=== PATIENT | female | born 1970 | race American Indian/Alaskan Native ===

== ENCOUNTER 2016-12-25 07:26 | Emergency (ER) | payer OTHER ==
[2016-12-25 07:36] VITALS: BP 123/88
--- NOTE | 2016-12-25 08:10 | Emergency Department Report ---
- General Chief Complaint: Skin/Abscess/Foreign Body Stated Complaint: HYSTERECTOMY STITCHES BUSTED/LEAKING Time Seen by Provider: 12/25/16 07:44 Source: patient Mode of arrival: Ambulatory Limitations: No Limitations - History of Present Illness Initial Comments: Patient here status post hysterectomy on 12/08 2016. C/O oozing from post op incision that she noticed this morning. She denies fever or chills. Denies pain. She said she placed gauze dressing at the site . She said area was nevaeh prior to this morning. describe drainage as clears pus mixed with blood. Denies odor.patient is diabetic on metformin and said her blood sugar was 150 this morning and did not take her medication as yet. Patient had breakfast this morning. -: This morning Location: abdomen (post op incision) Place: home Patient Tetanus UTD: Yes Context: other (post op incision) Associated Symptoms: none, other (none) Treatments Prior to Arrival: bandage - Related Data Home Medications Medication Instructions Recorded Confirmed Last Taken Lisinopril/Hydrochlorothiazide 1 tab PO DAILY 07/01/13 03/09/15 06/30/13 [Zestoretic 20-12.5 mg] metFORMIN [Glucophage] 500 mg PO BID 07/01/13 03/09/15 07/01/13 Previous Rx's Medication Instructions Recorded Last Taken Type Lisinopril/Hydrochlorothiazide 1 each PO DAILY #7 tablet 03/09/15 Unknown Rx [Zestoretic 20-12.5 mg] Cephalexin [Keflex] 500 mg PO Q8HR #30 cap 12/25/16 Unknown Rx Sulfamethoxazole/Trimethoprim 1 each PO BID #20 tablet 12/25/16 Unknown Rx [Bactrim DS TAB] Allergies Allergy/AdvReac Type Severity Reaction Status Date / Time No Known Allergies Allergy Unverified 12/25/16 07:36 ED Review of Systems ROS: Stated complaint: HYSTERECTOMY STITCHES BUSTED/LEAKING Other details as noted in HPI Comment: All other systems reviewed and negative Constitutional: denies: chills, fever, malaise Respiratory: no symptoms reported Cardiovascular: denies: chest pain, palpitations, edema, syncope Gastrointestinal: denies: abdominal pain, nausea, vomiting Musculoskeletal: denies: back pain, joint swelling, arthralgia Skin: other (Post op wound draining) Neurological: denies: headache, numbness, paresthesias, abnormal gait ED Past Medical Hx - Past Medical History Previous Medical History?: Yes Hx Hypertension: Yes Hx Diabetes: Yes - Surgical History Past Surgical History?: Yes Additional Surgical History: tubal ligation. hysterectomy - Family History Family history: diabetes, hypertension - Social History Smoking Status: Never Smoker Substance Use Type: None - Medications Home Medications: Home Medications Medication Instructions Recorded Confirmed Last Taken Type Lisinopril/Hydrochlorothiazide 1 tab PO DAILY 07/01/13 03/09/15 06/30/13 History [Zestoretic 20-12.5 mg] metFORMIN [Glucophage] 500 mg PO BID 07/01/13 03/09/15 07/01/13 History Lisinopril/Hydrochlorothiazide 1 each PO DAILY #7 tablet 03/09/15 Unknown Rx [Zestoretic 20-12.5 mg] Cephalexin [Keflex] 500 mg PO Q8HR #30 cap 12/25/16 Unknown Rx Sulfamethoxazole/Trimethoprim 1 each PO BID #20 tablet 12/25/16 Unknown Rx [Bactrim DS TAB] ED Physical Exam - General Limitations: No Limitations General appearance: alert, in no apparent distress - Head Head exam: Present: atraumatic, normocephalic, normal inspection - Eye Eye exam: Present: normal appearance, PERRL, EOMI. Absent: periorbital swelling , periorbital tenderness Pupils: Present: normal accommodation - ENT ENT exam: Present: normal exam, normal orophraynx, mucous membranes moist - Neck Neck exam: Present: normal inspection, full ROM. Absent: tenderness, meningismus, lymphadenopathy - Respiratory Respiratory exam: Present: normal lung sounds bilaterally. Absent: respiratory distress, chest wall tenderness - Cardiovascular Cardiovascular Exam: Present: regular rate, normal rhythm, normal heart sounds - GI/Abdominal GI/Abdominal exam: Present: soft, tenderness ( around the incision site), normal bowel sounds. Absent: distended, guarding, rebound, rigid, mass - Extremities Exam Extremities exam: Present: normal inspection, full ROM, normal capillary refill. Absent: tenderness, pedal edema, joint swelling, calf tenderness - Back Exam Back exam: Present: normal inspection, full ROM. Absent: tenderness, CVA tenderness (R), CVA tenderness (L), muscle spasm, paraspinal tenderness, vertebral tenderness, rash noted - Neurological Exam Neurological exam: Present: alert, oriented X3, normal gait, reflexes normal. Absent: motor sensory deficit - Psychiatric Psychiatric exam: Present: normal affect, normal mood - Skin Skin exam: Present: warm, dry, other (Postop incision draining) - Expanded Skin Exam Expanded Type of lesion: Present: other (patient with postop wound pelvic area status post hysterectomy. Small drainage sanguinous at left anterior forearm with small opening. Tenderness to palpate, no induration.) Distribution of rash: abdomen (pelvic postop wound) Description of rash: Present: tenderness, erythematous, discharge. Absent: swelling, crusting, fluctuant, indurated ED Course Vital Signs 12/25/16 07:32 Temperature 98.2 F Pulse Rate 88 Respiratory 16 Rate Blood Pressure 123/88 O2 Sat by Pulse 98 Oximetry Vital Signs 12/25/16 07:32 Temperature 98.2 F Pulse Rate 88 Respiratory 16 Rate Blood Pressure 123/88 O2 Sat by Pulse 98 Oximetry - Reevaluation(s) Reevaluation #1: 12/25/16 10:22 Patient is stable, no distress. In Dr. Brenna Noe from [place] to call back to consult on antibiotic preference for cellulites of postop wound. Reevaluation #2: 12/25/16 11:03 Patient stable no distress and to start on Keflex and Bactrim. ED Medical Decision Making - Lab Data Result diagrams: 12/25/16 08:39 12/25/16 08:39 Lab Results 12/25/16 12/25/16 Range/Units 08:39 08:39 WBC 6.5 (4.5-11.0) K/mm3 RBC 3.98 (3.65-5.03) M/mm3 Hgb 10.9 (10.1-14.3) gm/dl Hct 33.8 (30.3-42.9) % MCV 85 (79-97) fl MCH 28 (28-32) pg MCHC 32 (30-34) % RDW 13.5 (13.2-15.2) % Plt Count 455 H (140-440) K/mm3 Lymph % (Auto) 29.7 (13.4-35.0) % [place] % (Auto) 7.8 H (0.0-7.3) % Eos % (Auto) 1.6 (0.0-4.3) % Baso % (Auto) 0.9 (0.0-1.8) % Lymph # 1.9 (1.2-5.4) K/mm3 [place] # 0.5 (0.0-0.8) K/mm3 Eos # 0.1 (0.0-0.4) K/mm3 Baso # 0.1 (0.0-0.1) K/mm3 Seg Neutrophils % 60.0 (40.0-70.0) % Seg Neutrophils # 3.9 (1.8-7.7) K/mm3 Sodium 137 (137-145) mmol/L Potassium 4.3 (3.6-5.0) mmol/L Chloride 97.3 L (98-107) mmol/L Carbon Dioxide 26 (22-30) mmol/L Anion Gap 18 mmol/L BUN 15 (7-17) mg/dL Creatinine 0.6 L (0.7-1.2) mg/dL Estimated GFR > 60 ml/min BUN/Creatinine Ratio 25.00 % Glucose 254 H (65-100) mg/dL Calcium 9.3 (8.4-10.2) mg/dL Blood cultures are pending. - Radiology Data Radiology results: report reviewed CT scan of the plan and pelvis without contrast revealed nonspecific soft tissue inflammation in the anterior pelvic wall consistent with cellulite. No abscesses visualized. Right nephrolithiasis, nonobstructing. Recent hysterectomy there is no evidence for pelvic fluid collection or abscess. These are present and unremarkable. There are approximately 5 or 6 stones in the right kidney measuring 2 mm. Scarring in the superior pole of the right kidney is also noted to left kidney, renal collecting system and had unremarkable. - Medical Decision Making ED Course: Patient is status post hysterectomy on 12/08/2016 with cellulitis to Postop incision. She is afebrile and her CBC within normal limits, BMP showed a glucose at 254. Patient ate before coming into the emergency room and has not taken her metformin as yet. Incidental findings for right kidney stone without obstruction. I collaborated with Dr. Rodriguez and patient presentation, clinical findings and CT scan and lab results. Patient had no pain in emergency room and remained stable throughout stay. Discussed results of CT scan and lab results with her. She voiced understanding. Dr. Noe called to inform him that patient is in the emergency room for postop wound infection. Discharged home with prescription for Bactrim DS and Keflex and to follow-up in Dr. office as scheduled for next week. Patient had gauze dressing at home and instructed in how to take care of for him. Patient discharged home with family and voiced understanding the discharge instruction. She says she will take her medication for her diabetes when she gets home. I also encouraged her to increase her fluid intake. Wound cleansed with normal saline and sterile dry dressing pesticide. Critical care attestation.: If time is entered above; I have spent that time in minutes in the direct care of this critically ill patient, excluding procedure time. ED Disposition Clinical Impression: Status post hysterectomy Postoperative wound cellulitis Qualifiers: Encounter type: initial encounter Qualified Code(s): T81.4XXA - Infection following a procedure, initial encounter Wound dehiscence, surgical Qualifiers: Encounter type: initial encounter Qualified Code(s): T81.31XA - Disruption of external operation (surgical) wound, not elsewhere classified, initial encounter Disposition: TO HOME OR SELFCARE Is pt being admited?: No Does the pt Need Aspirin: No Condition: Stable Instructions: Cellulitis (ED), Acute Wound Care (ED), Wound Dehiscence (ED) Additional Instructions: Please follow-up with your Surgeon at [facility] as scheduled. Please keep affected area clean and dry Please take antibiotic as prescribed Keep your blood sugar levels within normal limits as stated blood sugar came cause poor wound healing Increase her fluid intake to 2-3 L of water per day She develops redness, increased drainage, pain and fever please call your surgeon and/or return to the emergency room RONNIE Prescriptions: Cephalexin [Keflex] 500 mg PO Q8HR #30 cap Sulfamethoxazole/Trimethoprim [Bactrim DS TAB] 1 each PO BID #20 tablet Referrals: Brenna Dickens [Other] - 12/29/16 (Please keep the appointment with Dr. Brenna Noe for postop evaluation and cellulitis.) Forms: Accompanied Note
--- NOTE | 2016-12-25 08:49 | Cat Scan Report ---
CT OF THE ABDOMEN AND PELVIS WITHOUT CONTRAST HISTORY: Abdominal pain, recent hysterectomy with wound infection. TECHNIQUE: Helical CT without contrast. Sagittal and coronal reformatted images. FINDINGS: No relevant comparison at this facility. History of recent hysterectomy as given. The uterus is absent. The ovaries are present and unremarkable. There is no evidence for pelvic fluid collection or abscess. There is nonspecific soft tissue edema and gas in the anterior subcutaneous tissues consistent with a cellulitis. The liver, biliary system, pancreas, spleen, and adrenal glands are unremarkable. The bowel loops are normal caliber and wall thickness given no oral contrast was administered. Normal appendix. There are approximately 5 or 6 stones in the right kidney measuring 2 mm. Focal cortical scarring in the superior pole of the right kidney is also. The left kidney, renal collecting systems and bladder are unremarkable. The lung bases are clear. Normal heart size. No suspicious bony lesion. IMPRESSION: Nonspecific soft tissue inflammation in the anterior pelvic wall consistent with a cellulitis. No abscess is visualized. Right nephrolithiasis, nonobstructing. Recent hysterectomy.
[2016-12-25 08:53] LABS: Basophils % (Auto) 0.9 % (0.0-1.8); Eosinophils % (Auto) 1.6 % (0.0-4.3); Hematocrit 33.8 % (30.3-42.9); Hemoglobin 10.9 gm/dl (10.1-14.3); Mean Corpuscular HGB Conc 32 % (30-34); Mean Corpuscular Hemoglobin 28 pg (28-32); Mean Corpuscular Volume 85 fl (79-97); Platelet Count 455 K/mm3 (140-440); Red Blood Count 3.98 M/mm3 (3.65-5.03); Red Cell Distribution Width 13.5 % (13.2-15.2); White Blood Count 6.5 K/mm3 (4.5-11.0)
[2016-12-25 09:06] LABS: Anion Gap 18 mmol/L; Blood Urea Nitrogen 15 mg/dL (7-17); Calcium 9.3 mg/dL (8.4-10.2); Carbon Dioxide 26 mmol/L (22-30); Chloride 97.3 mmol/L (98-107); Glucose 254 mg/dL (65-100); Potassium 4.3 mmol/L (3.6-5.0); Sodium 137 mmol/L (137-145)
== END 2016-12-25 11:24 | disposition home or self-care (01) ==
LOC: ED 07:26
DX: T81.4XXA Infection following a procedure, initial encounter (principal); T81.31XA Disruption of external operation (surgical) wound, not elsewhere classified, initial encounter; I10 Essential (primary) hypertension; E11.9 Type 2 diabetes mellitus without complications; Z90.710 Acquired absence of both cervix and uterus; Y83.8 Other surgical procedures as the cause of abnormal reaction of the patient, or of later complication, without mention of misadventure at the time of the procedure
CPT/HCPCS: 36415; 74176; 80048; 85025; 87040; 99284

== ENCOUNTER 2019-01-21 16:21 | Emergency (ER) | payer OTHER ==
--- NOTE | 2019-01-21 17:50 | Emergency Department Report ---
Blank Doc - Documentation Documentation: C/o lower abdominal pain and lower back pain . tsted for UTI last thursday and was negative. no urinary symptoms. No fever or chills . Positive vaginal dischare, Facial pain on both sides Hysterectomy 2017 Dr. Calabrese is PCP Labs,
[2019-01-21 18:40] LABS: Basophils % (Auto) 0.6 % (0.0-1.8); Eosinophils # (Auto) 0.2 K/mm3 (0.0-0.4); Eosinophils % (Auto) 2.2 % (0.0-4.3); Hematocrit 36.7 % (30.3-42.9); Hemoglobin 12.4 gm/dl (10.1-14.3); Lymphocytes # (Auto) 2.9 K/mm3 (1.2-5.4); Lymphocytes % (Auto) 39.5 % (13.4-35.0); Mean Corpuscular HGB Conc 34 % (30-34); Mean Corpuscular Volume 87 fl (79-97); Monocytes # (Auto) 0.4 K/mm3 (0.0-0.8); Monocytes % (Auto) 5.2 % (0.0-7.3); Platelet Count 317 K/mm3 (140-440); Red Blood Count 4.21 M/mm3 (3.65-5.03); Red Cell Distribution Width 13.7 % (13.2-15.2)
[2019-01-21 18:50] LABS: Alanine Aminotransferase 11 units/L (7-56); BUN/Creatinine Ratio 19; Blood Urea Nitrogen 15 mg/dL (7-17); Hemolysis Index 12
[2019-01-21 19:22] LABS: Bilirubin,Urine NEG (Negative); Blood,Urine NEG (Negative); Color,Urine Yellow (Yellow); Mucus,Urine 1+ /HPF; Protein,Urine <15 mg/dL mg/dL (Negative); Urobilinogen,Urine < 2.0 mg/dL (<2.0)
[2019-01-21] MEDS ORDERED: ZOFRAN IV ONE (19:35)
--- NOTE | 2019-01-21 21:15 | Cat Scan Report ---
CT abdomen pelvis w con INDICATION / CLINICAL INFORMATION: Lower abdominal pain with nausea. TECHNIQUE: The patient received 100 cc Omnipaque [address] scans at this location are performed using CT dose reduction for ALARA by means of automated exposure control. COMPARISON: 12/25/2016. FINDINGS: ABDOMEN: The liver, spleen, gallbladder, bile ducts, pancreas, adrenal glands and left kidney are nor mal. There is cortical scarring involving the right kidney, most prominent in the upper pole. There i s a 1 cm angiomyolipoma in the upper pole of the right kidney. I see no evidence of bowel obstruction , wall thickening or free air. The lung bases are clear. PELVIS: The distal ureters and urinary bladder are normal. The uterus is not identified. There is no evidence of adnexal mass or free fluid. A normal appendix is present and there is no evidence of dive rticulitis. I do not identify a hernia. The bones are normal. IMPRESSION: No acute intra-abdominal disease is identified. Signer Name: Robert Gutierrez MD Signed: 01/21/2019 9:11 PM Workstation Name: [id number]
[2019-01-21 21:42] VITALS: BP 118/78
--- NOTE | 2019-01-21 22:04 | Emergency Department Report ---
ED General Adult HPI - General Chief complaint: Abdominal Pain Stated complaint: ABDOMDINAL/LOW BACK PAIN Time Seen by Provider: 01/21/19 17:46 Source: patient Mode of arrival: Ambulatory Limitations: No Limitations - History of Present Illness Initial comments: Patient is a 48-year-old AA female with a history of hypertension and [id number] diabetes who presents to the ED with c/o acute onset persistent diffuse lower abdominal pain that radiates to her lower back for the last 1 week, and which got worse 2 days ago. Patient states that she has been taking ibuprofen for pain which helps her pain but that the pain is persistent as soon as ibuprofen wears off. Patient also states that she's been having constipation problems as well in the last 2 days. Patient however states for the last bowel movement she had was 24 hours ago. Patient also complains of vaginal discharge. No smile. Patient denies fever, chills, nausea, vomiting, dysuria, urinary frequency and urgency, headache, chest pain, shortness of breath, traumatic injury, numbness and tingling of upper and lower extremities bilaterally, urinary or bowel incontinence, saddle paresthesia vaginal bleeding. MD Complaint: Abdominal pain -: Sudden, week(s) (1) Location: abdomen Severity scale (0 -10): 6 (1 mother. No for ibuprofen mildly) Quality: aching, sharp Improves with: none Worsens with: none Associated Symptoms: denies other symptoms ( sick with). denies: confusion, chest pain, cough, headaches, loss of appetite, malaise, nausea/vomiting, rash, shortness of breath Treatments Prior to Arrival: NSAID - Related Data Home Medications Medication Instructions Recorded Confirmed Last Taken Lisinopril/Hydrochlorothiazide 1 tab PO DAILY 07/01/13 03/09/15 06/30/13 [Zestoretic 20-12.5 mg] metFORMIN [Glucophage] 500 mg PO BID 07/01/13 03/09/15 07/01/13 Previous Rx's Medication Instructions Recorded Last Taken Type Lisinopril/Hydrochlorothiazide 1 each PO DAILY #7 tablet 03/09/15 Unknown Rx [Zestoretic 20-12.5 mg] Sulfamethoxazole/Trimethoprim 1 each PO BID #20 tablet 12/25/16 Unknown Rx [Bactrim DS TAB] cephALEXin [Keflex] 500 mg PO Q8HR #30 cap 12/25/16 Unknown Rx Cyclobenzaprine [Flexeril] 10 mg PO TID PRN #21 tablet 01/21/19 Unknown Rx Allergies Allergy/AdvReac Type Severity Reaction Status Date / Time ciprofloxacin [From Cipro] AdvReac Dizziness Verified 01/21/19 16:26 ED Review of Systems ROS: Stated complaint: ABDOMDINAL/LOW BACK PAIN Other details as noted in HPI Constitutional: denies: chills, fever Eyes: denies: eye pain, eye discharge, vision change ENT: denies: ear pain, throat pain Respiratory: denies: cough, shortness of breath, wheezing Cardiovascular: denies: chest pain, palpitations Endocrine: no symptoms reported. denies: increased hunger, increased thirst, unexplained weight gain, unexplained weight loss Gastrointestinal: abdominal pain, constipation. denies: nausea, diarrhea Genitourinary: discharge. denies: urgency, dysuria, frequency, hematuria Musculoskeletal: back pain, arthralgia. denies: joint swelling Skin: denies: rash, lesions Neurological: denies: headache, weakness, paresthesias Psychiatric: denies: anxiety, depression Hematological/Lymphatic: denies: easy bleeding, easy bruising ED Past Medical Hx - Past Medical History Previous Medical History?: Yes Hx Hypertension: Yes Hx Diabetes: Yes - Surgical History Past Surgical History?: Yes Additional Surgical History: tubal ligation. hysterectomy - Social History Smoking Status: Never Smoker - Medications Home Medications: Home Medications Medication Instructions Recorded Confirmed Last Taken Type Lisinopril/Hydrochlorothiazide 1 tab PO DAILY 07/01/13 03/09/15 06/30/13 History [Zestoretic 20-12.5 mg] metFORMIN [Glucophage] 500 mg PO BID 07/01/13 03/09/15 07/01/13 History Lisinopril/Hydrochlorothiazide 1 each PO DAILY #7 tablet 03/09/15 Unknown Rx [Zestoretic 20-12.5 mg] Sulfamethoxazole/Trimethoprim 1 each PO BID #20 tablet 12/25/16 Unknown Rx [Bactrim DS TAB] cephALEXin [Keflex] 500 mg PO Q8HR #30 cap 12/25/16 Unknown Rx Cyclobenzaprine [Flexeril] 10 mg PO TID PRN #21 tablet 01/21/19 Unknown Rx ED Physical Exam - General Limitations: No Limitations General appearance: alert, in no apparent distress - Head Head exam: Present: atraumatic, normocephalic, normal inspection - Eye Eye exam: Present: normal appearance, PERRL, EOMI. Absent: scleral icterus Pupils: Present: normal accommodation - ENT ENT exam: Present: normal exam, normal orophraynx, mucous membranes moist, TM's normal bilaterally, normal external ear exam - Neck Neck exam: Present: normal inspection, full ROM - Respiratory Respiratory exam: Present: normal lung sounds bilaterally. Absent: respiratory distress, wheezes, rales, rhonchi, chest wall tenderness, accessory muscle use - Cardiovascular Cardiovascular Exam: Present: regular rate, normal rhythm, normal heart sounds. Absent: systolic murmur, diastolic murmur, rubs, gallop - GI/Abdominal GI/Abdominal exam: Present: soft, normal bowel sounds - Rectal Rectal exam: Present: deferred - Extremities Exam Extremities exam: Present: normal inspection, full ROM, normal capillary refill - Back Exam Back exam: Present: normal inspection, full ROM. Absent: tenderness, CVA tenderness (L), muscle spasm, paraspinal tenderness, vertebral tenderness - Neurological Exam Neurological exam: Present: alert, oriented X3, CN II-XII intact, normal gait, reflexes normal - Psychiatric Psychiatric exam: Present: normal affect, normal mood - Skin Skin exam: Present: warm, dry, intact, normal color. Absent: rash ED Course Vital Signs 01/21/19 01/21/19 16:34 21:41 Temperature 98 F 98.4 F Pulse Rate 70 66 Respiratory 18 18 Rate Blood Pressure 135/90 Blood Pressure 118/78 [Left] O2 Sat by Pulse 100 99 Oximetry - Reevaluation(s) Reevaluation #1: 01/21/19 22:05 Patient is alert and oriented 3 and is not in distress with normal vital signs. Lab test results were reviewed and are unremarkable including urinalysis. Abdomen pelvis CT scan with contrast shows no acute pathology with normal appendix. On reevaluation, the patient's pain was well controlled as the patient had taken ibuprofen 800 mg prior to arrival in the ED. Patient's symptoms are likely musculoskeletal, and will be discharged home on muscle relaxants and pain medications. Patient was discharged home on pain medications and muscle relaxants and advised to follow-up with primary care physician in 5- 7 days for reevaluation, or return to the ED immediately if symptoms get worse. ED Medical Decision Making - Lab Data Result diagrams: 01/21/19 18:07 01/21/19 18:07 - Radiology Data Radiology results: report reviewed, image reviewed Abdomen-Pelvis CT Scan w/contrast shows no acute pathology in the GI tract and Pelvis region. - Medical Decision Making Patient is alert and oriented 3 and is not in distress with normal vital signs. Lab test results were reviewed and are unremarkable including urinalysis. Abdomen pelvis CT scan with contrast shows no acute pathology with normal appendix. On reevaluation, the patient's pain was well controlled as the patient had taken ibuprofen 800 mg prior to arrival in the ED. Patient's symptoms are likely musculoskeletal, and will be discharged home on muscle relaxants and pain medications. Patient was discharged home on pain medications and muscle relaxants and advised to follow-up with primary care physician in 5- 7 days for reevaluation, or return to the ED immediately if symptoms get worse. - Differential Diagnosis Abdominal pain; acuet colitis, diverticulitis, ovarian cyst, appendicitis Critical care attestation.: If time is entered above; I have spent that time in minutes in the direct care of this critically ill patient, excluding procedure time. ED Disposition Clinical Impression: Spasm of muscle of lower back Abdominal pain Qualifiers: Abdominal location: lower abdomen, unspecified Qualified Code(s): R10.30 - Lower abdominal pain, unspecified Disposition: - TO HOME OR SELFCARE Is pt being admited?: No Does the pt Need Aspirin: No Condition: Stable Instructions: Abdominal Pain (ED), Muscle Spasm (ED) Additional Instructions: Take medications with food, drink plenty of fluids and follow-up with your primary care physician in 5-7 days for reevaluation. Return to the ED immediately if symptoms get worse. Prescriptions: Cyclobenzaprine [Flexeril] 10 mg PO TID PRN #21 tablet PRN Reason: Muscle Spasm Referrals: [facility] [Outside] - 3-5 Days Time of Disposition: 22:09 Print Language: [place]
== END 2019-01-21 22:27 | disposition home or self-care (01) ==
LOC: ED 16:21
DX: M62.830 Muscle spasm of back (principal); R10.30 Lower abdominal pain, unspecified; I10 Essential (primary) hypertension; E11.9 Type 2 diabetes mellitus without complications; Z98.51 Tubal ligation status; Z90.710 Acquired absence of both cervix and uterus; Z79.899 Other long term (current) drug therapy; Z88.1 Allergy status to other antibiotic agents
CPT/HCPCS: 36415; 74177; 80053; 81001; 83690; 85025; 99284; J2405; Q9967

== ENCOUNTER 2019-05-15 14:49 | Emergency (ER) | payer OTHER ==
[2019-05-15 14:57] VITALS: BP 113/77
--- NOTE | 2019-05-15 14:59 | Event Note ---
ED Screening Note ED Screening Note: left elbow pain that began last night no fall or injury tingling to the left pinky finger PMHx HTN, DM allergies to ciprofloxacin This initial assessment/diagnostic orders/clinical plan/treatment(s) is/are subject to change based on patients health status, clinical progression and re- assessment by fellow clinical providers in the ED. Further treatment and workup at subsequent clinical providers discretion. Patient/guardian urged not to elope from the ED as their condition may be serious if not clinically assessed and managed. Initial orders include: XR of the left elbow
--- NOTE | 2019-05-15 15:37 | XRay Report ---
Left elbow-3 views INDICATION: left elbow pain, tingling left pinky. COMPARISON: None. IMPRESSION: No acute osseous or soft tissue abnormality. No significant DJD. Signer Name: Dave Sandoval MD Signed: 05/15/2019 3:33 PM Workstation Name: [id number]
--- NOTE | 2019-05-15 16:04 | Emergency Department Report ---
ED Upper Extremity Inj HPI - General Chief Complaint: Extremity Injury, Upper Stated Complaint: L ARM/HANDS/NECK PAIN Time Seen by Provider: 05/15/19 14:57 Source: patient Mode of arrival: Ambulatory Limitations: No Limitations - History of Present Illness Initial Comments: This is a 49-year-old female nontoxic, well nourished in appearance, no acute si gns of distress presents to the ED with c/o of left elbow pain 1 day. Patient stated that she wake up with this pain. Patient denies any trauma. Patient stated that pain radiates to lower extremity. Patient denies any numbness, tingling, fever, chills, nausea, vomiting, chest pain, shortness of breath, headache, stiff neck. Patient denies any joint swelling or joint redness. Patient denies decreased range of motion. Patient stated allergies to ciprofloxacin with no significant past medical history. MD Complaint: Injury to:: left, elbow -: days(s) Other Extremity Injury: Elbow: Left Other Injuries: none Place: home Improves With: immobilization Worsens With: movement of extremity Associated Symptoms: denies other symptoms. denies: weakness, numbness, neck pain, suspects foreign body, nausea/vomiting, heard/felt popping sensat - Related Data Home Medications Medication Instructions Recorded Confirmed Last Taken Lisinopril/Hydrochlorothiazide 1 tab PO DAILY 07/01/13 03/09/15 06/30/13 [Zestoretic 20-12.5 mg] metFORMIN [Glucophage] 500 mg PO BID 07/01/13 03/09/15 07/01/13 Previous Rx's Medication Instructions Recorded Last Taken Type Lisinopril/Hydrochlorothiazide 1 each PO DAILY #7 tablet 03/09/15 Unknown Rx [Zestoretic 20-12.5 mg] Sulfamethoxazole/Trimethoprim 1 each PO BID #20 tablet 12/25/16 Unknown Rx [Bactrim DS TAB] cephALEXin [Keflex] 500 mg PO Q8HR #30 cap 12/25/16 Unknown Rx Cyclobenzaprine [Flexeril] 10 mg PO TID PRN #21 tablet 01/21/19 Unknown Rx Acetaminophen/Codeine [Tylenol 1 tab PO Q6H PRN #12 tab 05/15/19 Unknown Rx /Codeine # 3 tab] Allergies Allergy/AdvReac Type Severity Reaction Status Date / Time ciprofloxacin [From Cipro] AdvReac Dizziness Verified 01/21/19 16:26 ED Review of Systems ROS: Stated complaint: L ARM/HANDS/NECK PAIN Other details as noted in HPI Constitutional: denies: chills, fever Eyes: denies: eye pain, eye discharge, vision change ENT: denies: ear pain, throat pain Respiratory: denies: cough, shortness of breath, wheezing Cardiovascular: denies: chest pain, palpitations Endocrine: no symptoms reported Gastrointestinal: denies: abdominal pain, nausea, diarrhea Genitourinary: denies: urgency, dysuria, discharge Musculoskeletal: denies: back pain, joint swelling, arthralgia Skin: denies: rash, lesions Neurological: denies: headache, weakness, paresthesias Psychiatric: denies: anxiety, depression Hematological/Lymphatic: denies: easy bleeding, easy bruising ED Past Medical Hx - Past Medical History Previous Medical History?: Yes Hx Hypertension: Yes Hx Diabetes: Yes - Surgical History Past Surgical History?: No Additional Surgical History: tubal ligation 1997. hysterectomy 2016 - Social History Smoking Status: Never Smoker Substance Use Type: None - Medications Home Medications: Home Medications Medication Instructions Recorded Confirmed Last Taken Type Lisinopril/Hydrochlorothiazide 1 tab PO DAILY 07/01/13 03/09/15 06/30/13 History [Zestoretic 20-12.5 mg] metFORMIN [Glucophage] 500 mg PO BID 07/01/13 03/09/15 07/01/13 History Lisinopril/Hydrochlorothiazide 1 each PO DAILY #7 tablet 03/09/15 Unknown Rx [Zestoretic 20-12.5 mg] Sulfamethoxazole/Trimethoprim 1 each PO BID #20 tablet 12/25/16 Unknown Rx [Bactrim DS TAB] cephALEXin [Keflex] 500 mg PO Q8HR #30 cap 12/25/16 Unknown Rx Cyclobenzaprine [Flexeril] 10 mg PO TID PRN #21 tablet 01/21/19 Unknown Rx Acetaminophen/Codeine [Tylenol 1 tab PO Q6H PRN #12 tab 05/15/19 Unknown Rx /Codeine # 3 tab] ED Physical Exam - General Limitations: No Limitations General appearance: alert, in no apparent distress - Head Head exam: Present: atraumatic, normocephalic - Neck Neck exam: Present: normal inspection, full ROM. Absent: tenderness, meningismus, lymphadenopathy - Extremities Exam Extremities exam: Present: normal inspection, full ROM, tenderness, normal capillary refill. Absent: joint swelling, calf tenderness - Expanded Upper Extremity Exam Left General: Present: normal inspection Shoulder Exam: Present: normal inspection, full ROM. Absent: tenderness, swelling Upper Arm exam: Present: normal inspection, full ROM. Absent: tenderness, swelling Elbow exam: Present: normal inspection, full ROM, tenderness. Absent: swelling, abrasion, laceration, ecchymosis, deformity, crepidus, dislocation, erythema, effusion, pain w/ pronation/supination, tenderness over radial head Forearm Wrist exam: Present: normal inspection, full ROM. Absent: tenderness, swelling Hand Wrist exam: Present: normal inspection, full ROM. Absent: tenderness, swelling Vascular: Present: vascular compromise, normal capillary refill - Back Exam Back exam: Present: normal inspection, full ROM. Absent: tenderness, CVA tenderness (R), CVA tenderness (L), muscle spasm, paraspinal tenderness, vertebral tenderness, rash noted - Neurological Exam Neurological exam: Present: alert, oriented X3, normal gait - Psychiatric Psychiatric exam: Present: normal affect, normal mood - Skin Skin exam: Present: warm, dry, intact, normal color. Absent: rash ED Course Vital Signs 05/15/19 14:52 Temperature 98.5 F Pulse Rate 79 Respiratory 16 Rate Blood Pressure 113/77 O2 Sat by Pulse 97 Oximetry - Reevaluation(s) Reevaluation #1: 05/15/19 16:03 Patient is speaking in full sentences with no signs of distress noted. ED Medical Decision Making - Medical Decision Making This is a 49-year-old female that presents with left elbow strain. Patient is stable and was examined by me. I referred patient to an orthopedic doctor for further evaluation for possible MRI. X-ray has been obtained and dictated by the radiologist. Patient is notified of the x-ray report with noted by the patient. Patient does have normal gait with no tenderness and no joint swelling. No ecchymosis. no joint redness or swelling. Not warm to touch. No signs of cellulites present. Patient was instructed to RICE therapy. At time of discharge, the patient does not seem toxic or ill in appearance. No acute signs of distress noted. Patient agrees to discharge treatment plan of care. No further questions noted by the patient. Critical care attestation.: If time is entered above; I have spent that time in minutes in the direct care of this critically ill patient, excluding procedure time. ED Disposition Clinical Impression: Strain of left elbow Qualifiers: Encounter type: initial encounter Qualified Code(s): S46.912A - Strain of unspecified muscle, fascia and tendon at shoulder and upper arm level, left arm, initial encounter Disposition: TO HOME OR SELFCARE Is pt being admited?: No Does the pt Need Aspirin: No Condition: Stable Instructions: Acetaminophen/Codeine (By mouth), RICE Therapy (ED) Additional Instructions: Follow-up with a orthopedic doctor in 3-5 days or if symptoms worsen and continue return to emergency room as soon as possible. Do not operate any machinery while taking Tylenol with codeine as this may cause drowsiness. Prescriptions: Acetaminophen/Codeine [Tylenol /Codeine # 3 tab] 1 tab PO Q6H PRN #12 tab PRN Reason: Pain , Severe (7-10) Referrals: PRIMARY MD FLAQUITA [Primary Care Provider] - 3-5 Days SYED ISAACS MD [Staff Physician] - 3-[address] [facility] [Outside] - 3-5 Days Forms: Work/School Release Form(ED)
== END 2019-05-15 16:10 | disposition home or self-care (01) ==
LOC: ED 14:49
DX: S46.912A Strain of unspecified muscle, fascia and tendon at shoulder and upper arm level, left arm, initial encounter (principal); I10 Essential (primary) hypertension; E11.9 Type 2 diabetes mellitus without complications; Z98.51 Tubal ligation status; Z90.710 Acquired absence of both cervix and uterus; Z88.1 Allergy status to other antibiotic agents; Z79.84 Long term (current) use of oral hypoglycemic drugs; X58.XXXA Exposure to other specified factors, initial encounter; Y93.89 Activity, other specified; Y92.009 Unspecified place in unspecified non-institutional (private) residence as the place of occurrence of the external cause; Y99.8 Other external cause status

== ENCOUNTER 2019-06-30 20:43 | Emergency (ER) | payer OTHER ==
[2019-06-30] MEDS ORDERED: ASPIRIN 325 MG TAB PO ONE (22:57)
--- NOTE | 2019-06-30 23:53 | XRay Report ---
CHEST 1 VIEW INDICATION / CLINICAL INFORMATION: Chest Pain. COMPARISON: 03/09/2015 chest radiograph FINDINGS: SUPPORT DEVICES: None. HEART / MEDIASTINUM: No significant abnormality. LUNGS / PLEURA: No significant pulmonary or pleural abnormality. No pneumothorax. IMPRESSION: 1. No acute finding. Signer Name: Stefan Snider MD Signed: 06/30/2019 11:49 PM Workstation Name: [id number]
[2019-07-01 00:08] LABS: Basophils # (Auto) 0.1 K/mm3 (0.0-0.1); Basophils % (Auto) 0.8 % (0.0-1.8); Eosinophils # (Auto) 0.1 K/mm3 (0.0-0.4); Eosinophils % (Auto) 1.9 % (0.0-4.3); Hematocrit 36.9 % (30.3-42.9); Hemoglobin 12.6 gm/dl (10.1-14.3); Lymphocytes # (Auto) 2.7 K/mm3 (1.2-5.4); Lymphocytes % (Auto) 38.4 % (13.4-35.0); Mean Corpuscular HGB Conc 34 % (30-34); Mean Corpuscular Volume 87 fl (79-97); Monocytes # (Auto) 0.4 K/mm3 (0.0-0.8); Monocytes % (Auto) 5.4 % (0.0-7.3); Platelet Count 323 K/mm3 (140-440); Red Blood Count 4.26 M/mm3 (3.65-5.03); Red Cell Distribution Width 13.4 % (13.2-15.2)
[2019-07-01 00:28] LABS: BUN/Creatinine Ratio 33; Blood Urea Nitrogen 23 mg/dL (7-17); Calcium 9.7 mg/dL (8.4-10.2); Hemolysis Index 5
[2019-07-01 02:13] VITALS: BP 108/74
--- NOTE | 2019-07-01 03:00 | Emergency Department Report ---
ED General Adult HPI - General Chief complaint: Chest Pain Stated complaint: CHEST PAIN/NECK/BACK PAIN Time Seen by Provider: 07/01/19 02:54 Source: patient Mode of arrival: Ambulatory Limitations: No Limitations - History of Present Illness Initial comments: Patient is a 49-year-old female with a past medical history of diabetes hypertension who is complaining of bilateral neck pain for the past 2 days. Patient states that there is tenderness with palpation of the neck which is radiating into the anterior upper chest. She denies exertional component cough cold congestion fevers or chills. She states this and mild sore throat p resent. Patient states pain is worse with palpation with turning her head. Severity scale (0 -10): 5 - Related Data Home Medications Medication Instructions Recorded Confirmed Last Taken Lisinopril/Hydrochlorothiazide 1 tab PO DAILY 07/01/13 03/09/15 06/30/13 [Zestoretic 20-12.5 mg] metFORMIN [Glucophage] 500 mg PO BID 07/01/13 03/09/15 07/01/13 Previous Rx's Medication Instructions Recorded Last Taken Type Lisinopril/Hydrochlorothiazide 1 each PO DAILY #7 tablet 03/09/15 Unknown Rx [Zestoretic 20-12.5 mg] Sulfamethoxazole/Trimethoprim 1 each PO BID #20 tablet 12/25/16 Unknown Rx [Bactrim DS TAB] cephALEXin [Keflex] 500 mg PO Q8HR #30 cap 12/25/16 Unknown Rx Cyclobenzaprine [Flexeril] 10 mg PO TID PRN #21 tablet 01/21/19 Unknown Rx Acetaminophen/Codeine [Tylenol 1 tab PO Q6H PRN #12 tab 05/15/19 Unknown Rx /Codeine # 3 tab] Ibuprofen [Motrin 600 MG tab] 600 mg PO Q8H PRN #14 tablet 07/01/19 Unknown Rx methOCARBAMOL [Robaxin TAB] 500 mg PO Q6H PRN #14 tablet 07/01/19 Unknown Rx traMADoL [Ultram] 50 mg PO Q6HR PRN #10 tablet 07/01/19 Unknown Rx Allergies Allergy/AdvReac Type Severity Reaction Status Date / Time ciprofloxacin [From Cipro] AdvReac Dizziness Verified 01/21/19 16:26 ED Review of Systems ROS: Stated complaint: CHEST PAIN/NECK/BACK PAIN Other details as noted in HPI Comment: All other systems reviewed and negative ED Past Medical Hx - Past Medical History Previous Medical History?: Yes Hx Hypertension: Yes Hx Diabetes: Yes Additional medical history: Obesity - Surgical History Past Surgical History?: Yes Additional Surgical History: tubal ligation 1997. hysterectomy 2016 - Social History Smoking Status: Never Smoker Substance Use Type: None - Medications Home Medications: Home Medications Medication Instructions Recorded Confirmed Last Taken Type Lisinopril/Hydrochlorothiazide 1 tab PO DAILY 07/01/13 03/09/15 06/30/13 History [Zestoretic 20-12.5 mg] metFORMIN [Glucophage] 500 mg PO BID 07/01/13 03/09/15 07/01/13 History Lisinopril/Hydrochlorothiazide 1 each PO DAILY #7 tablet 03/09/15 Unknown Rx [Zestoretic 20-12.5 mg] Sulfamethoxazole/Trimethoprim 1 each PO BID #20 tablet 12/25/16 Unknown Rx [Bactrim DS TAB] cephALEXin [Keflex] 500 mg PO Q8HR #30 cap 12/25/16 Unknown Rx Cyclobenzaprine [Flexeril] 10 mg PO TID PRN #21 tablet 01/21/19 Unknown Rx Acetaminophen/Codeine [Tylenol 1 tab PO Q6H PRN #12 tab 05/15/19 Unknown Rx /Codeine # 3 tab] Ibuprofen [Motrin 600 MG tab] 600 mg PO Q8H PRN #14 tablet 07/01/19 Unknown Rx methOCARBAMOL [Robaxin TAB] 500 mg PO Q6H PRN #14 tablet 07/01/19 Unknown Rx traMADoL [Ultram] 50 mg PO Q6HR PRN #10 tablet 07/01/19 Unknown Rx ED Physical Exam - General Limitations: No Limitations General appearance: alert, in no apparent distress - Head Head exam: Present: atraumatic, normocephalic - Eye Eye exam: Present: normal appearance - ENT ENT exam: Present: mucous membranes moist - Neck Neck exam: Present: normal inspection, tenderness (of the bilateral st ernocleidomastoid muscles.) - Respiratory Respiratory exam: Present: normal lung sounds bilaterally. Absent: respiratory distress - Cardiovascular Cardiovascular Exam: Present: regular rate, normal rhythm. Absent: systolic murmur, diastolic murmur, rubs, gallop - GI/Abdominal GI/Abdominal exam: Present: soft, normal bowel sounds - Extremities Exam Extremities exam: Present: normal inspection - Back Exam Back exam: Present: normal inspection - Neurological Exam Neurological exam: Present: alert, oriented X3 - Psychiatric Psychiatric exam: Present: normal affect, normal mood - Skin Skin exam: Present: warm, dry, intact, normal color. Absent: rash ED Course Vital Signs 06/30/19 07/01/19 20:52 02:10 Temperature 98.1 F 97.8 F Pulse Rate 80 68 Respiratory 20 18 Rate Blood Pressure 115/80 Blood Pressure 108/74 [Left] O2 Sat by Pulse 98 98 Oximetry ED Medical Decision Making - Lab Data Result diagrams: 06/30/19 23:42 06/30/19 23:42 Lab Results 06/30/19 06/30/19 07/01/19 Range/Units 23:42 23:42 01:40 WBC 7.2 (4.5-11.0) K/mm3 RBC 4.26 (3.65-5.03) M/mm3 Hgb 12.6 (10.1-14.3) gm/dl Hct 36.9 (30.3-42.9) % MCV 87 (79-97) fl MCH 30 (28-32) pg MCHC 34 (30-34) % RDW 13.4 (13.2-15.2) % Plt Count 323 (140-440) K/mm3 Lymph % (Auto) 38.4 H (13.4-35.0) % [place] % (Auto) 5.4 (0.0-7.3) % Eos % (Auto) 1.9 (0.0-4.3) % Baso % (Auto) 0.8 (0.0-1.8) % Lymph # 2.7 (1.2-5.4) K/mm3 [place] # 0.4 (0.0-0.8) K/mm3 Eos # 0.1 (0.0-0.4) K/mm3 Baso # 0.1 (0.0-0.1) K/mm3 Seg Neutrophils % 53.5 (40.0-70.0) % Seg Neutrophils # 3.8 (1.8-7.7) K/mm3 Sodium 139 (137-145) mmol/L Potassium 4.1 (3.6-5.0) mmol/L Chloride 99.9 (98-107) mmol/L Carbon Dioxide 27 (22-30) mmol/L Anion Gap 16 mmol/L BUN 23 H (7-17) mg/dL Creatinine 0.7 (0.7-1.2) mg/dL Estimated GFR > 60 ml/min BUN/Creatinine Ratio 33 % Glucose 144 H (65-100) mg/dL Calcium 9.7 (8.4-10.2) mg/dL Troponin T < 0.010 < 0.010 (0.00-0.029) ng/mL - EKG Data -: EKG Interpreted by [facility] EKG shows normal: sinus rhythm, axis, intervals, QRS complexes, ST-T waves Rate: normal - EKG Data Interpretation: normal EKG - Radiology Data Chest x-ray is within normal limits Critical care attestation.: If time is entered above; I have spent that time in minutes in the direct care of this critically ill patient, excluding procedure time. ED Disposition Clinical Impression: Acute torticollis Disposition: DC- TO HOME OR SELFCARE Is pt being admited?: No Does the pt Need Aspirin: No Condition: Stable Instructions: Spasmodic Torticollis (ED) Referrals: JOSE MARADIAGA MD [Primary Care Provider] - 3-5 Days Time of Disposition: 03:00
== END 2019-07-01 03:13 | disposition home or self-care (01) ==
LOC: ED 20:43
DX: M43.6 Torticollis (principal); I10 Essential (primary) hypertension; E11.9 Type 2 diabetes mellitus without complications; E66.9 Obesity, unspecified; Z98.51 Tubal ligation status; Z90.710 Acquired absence of both cervix and uterus; Z79.1 Long term (current) use of non-steroidal anti-inflammatories (NSAID); Z79.899 Other long term (current) drug therapy; Z88.8 Allergy status to other drugs, medicaments and biological substances
CPT/HCPCS: 36415; 71045; 80048; 84484; 85025; 93005; 93010